=== PATIENT | male | born 1955 | race African-American/Black ===

== ENCOUNTER 2017-04-08 04:23 | Emergency (ER) | payer MEDICAID ==
[~2017-04-08] VITALS: Ht 170.2 cm; Wt 68.0 kg
--- NOTE | 2017-04-08 04:30 | NUR ---
TO BED 6 A 62 YO MALE PT LEONIDES#88 FROM HOME, PT C/O SOB X 1 DAY, GIVEN 5MG OF ALBUTEROL ASSOCIATE ARTISTIC DIRECTOR. VSS. NAD NOTED. NONDIAPHORETIC. COMFORT MEASURES RENDERED.
--- NOTE | 2017-04-08 05:03 | NUR ---
Patient discharged to home in stable condition. Written and verbal after care instructions given. Patient verbalizes understanding of instruction. Patient is ambulatory with steady gait. Nad on dc. vss. No further complaints.
[2017-04-08 05:04] VITALS: BP 154/97
== END 2017-04-08 05:04 | disposition home or self-care (01) ==
LOC: ER 04:26
DX: J98.01 Acute bronchospasm (principal); Z87.891 Personal history of nicotine dependence
CPT/HCPCS: 99283; A4606; Z7610

== ENCOUNTER 2018-12-02 13:44 | Emergency (ER) | payer MEDICAID ==
[~2018-12-02] VITALS: Ht 170.2 cm; Wt 68.0 kg
[2018-12-02 13:44] VITALS: BP 167/97
--- NOTE | 2018-12-02 13:44 | NUR ---
TO ER BED 15,VERBALIZED HE FEELS BETTER AFTER HHN GIVEN BY EMS.
--- NOTE | 2018-12-02 14:11 | NUR ---
ASKED IF HE IS HOMELESS, ANSWERED YES. OFFERED TO HAVE CELL OPERATION SUPERVISOR TO SEE HIM BUT SAID THAT HE DOESN'T NEED ANY [facility] IS HELPING HIM.
[2018-12-02] MEDS ORDERED: ALBUTEROL FS 2.5 MG/3 ML VIAL.NEB NEB ONE (14:30)
[2018-12-02] MEDS ORDERED: IPRATROPIUM NEB FS 0.5 MG/2.5 ML AMPUL.NEB NEB ONE (14:30)
[2018-12-02] MEDS ORDERED: ALBUTEROL FS 2.5 MG/3 ML VIAL.NEB ONE (14:32)
[2018-12-02] MEDS ORDERED: IPRATROPIUM NEB FS 0.5 MG/2.5 ML AMPUL.NEB ONE (14:32)
== END 2018-12-02 16:47 | disposition home or self-care (01) ==
LOC: ER 13:53
DX: R06.02 Shortness of breath (principal); R06.2 Wheezing; F17.200 Nicotine dependence, unspecified, uncomplicated; Z60.2 Problems related to living alone

== ENCOUNTER 2019-05-06 22:30 | Emergency (ER) | payer MEDICAID ==
[~2019-05-06] VITALS: Ht 182.9 cm; Wt 86.2 kg
--- NOTE | 2019-05-06 22:32 | NUR ---
BIBRA88. C/O SOB - ASTHMA EXACERBATION. PT OUT OF INHALER. ALBUTEROL 5ML VIA HHN GIVEN ENROUTE TO ER, pt awake, alert, vss, pending md snowden
[2019-05-06] MEDS ORDERED: ALBUTEROL FS 2.5 MG/3 ML VIAL.NEB ONE (22:46)
[2019-05-06] MEDS ORDERED: IPRATROPIUM NEB FS 0.5 MG/2.5 ML AMPUL.NEB ONE (22:46)
[2019-05-06] MEDS ORDERED: ALBUTEROL FS 2.5 MG/0.5 ML VIAL.NEB NEB ONE (23:00)
[2019-05-06] MEDS ORDERED: IPRATROPIUM NEB FS 0.5 MG/2.5 ML AMPUL.NEB NEB ONE (23:00)
[2019-05-06] MEDS ORDERED: DEXAMETHASONE SOLN 5 MG/5 ML UDC PO ONE (23:00)
[2019-05-06] MEDS ORDERED: DEXAMETHASONE SOLN 5 MG/5 ML UDC ONE (23:01)
--- NOTE | 2019-05-06 23:40 | NUR ---
Patient discharged to home in stable condition. Written and verbal after care instructions given. Patient verbalizes understanding of instruction.
[2019-05-06 23:41] VITALS: BP 143/87
== END 2019-05-06 23:41 | disposition home or self-care (01) ==
LOC: ER 22:31
DX: J45.909 Unspecified asthma, uncomplicated (principal); F17.200 Nicotine dependence, unspecified, uncomplicated; Z59.0 Homelessness; Z60.2 Problems related to living alone
CPT/HCPCS: 71045; 94640; 99283; J8540

== ENCOUNTER 2019-07-15 23:47 | Emergency (ER) | payer MEDICAID ==
[~2019-07-15] VITALS: Ht 180.3 cm; Wt 86.2 kg
[2019-07-15] MEDS ORDERED: predniSONE 20 MG TABLET ONE ×2 (23:53→23:55)
[2019-07-16] MEDS ORDERED: predniSONE 20 MG TABLET PO ONE
[2019-07-16] MEDS ORDERED: ALBUTEROL FS 2.5 MG/3 ML VIAL.NEB NEB ONE
[2019-07-16] MEDS ORDERED: ALBUTEROL SULFATE 8 GM HFA.AER.AD IH ONE
--- NOTE | 2019-07-16 00:02 | NUR ---
PT AAOX4. AMBULATYORY WITH STEADY GAIT. BIBRA [address] C/O SOB FOR TWO DAYS, HX ASTHMA. UPON ASSESSMENT WHEEZING HEARD. CALLED RT.
[2019-07-16] MEDS ORDERED: ALBUTEROL FS 2.5 MG/3 ML VIAL.NEB ONE (00:29)
--- NOTE | 2019-07-16 00:32 | NUR ---
RT AT BEDSIDE FOR BREATHING TREATMENT.
--- NOTE | 2019-07-16 01:20 | NUR ---
Patient discharged to home in stable condition. Written and verbal after care instructions given. Patient verbalizes understanding of instruction and RX. Pt signed homeless dischage. Pt ambulated with steady gait. RR even and unlabored.
[2019-07-16 01:25] VITALS: BP 132/79
== END 2019-07-16 01:25 | disposition home or self-care (01) ==
LOC: ER 23:51
DX: J45.901 Unspecified asthma with (acute) exacerbation (principal); Z59.0 Homelessness; Z60.2 Problems related to living alone
CPT/HCPCS: 94640; 99285; J7512 ×2

== ENCOUNTER 2019-08-15 22:45 | Emergency (ER) | payer MEDICAID ==
[~2019-08-15] VITALS: Ht 180.3 cm; Wt 86.2 kg
[2019-08-15] MEDS ORDERED: predniSONE 20 MG TABLET ONE (22:51)
--- NOTE | 2019-08-15 22:57 | NUR ---
MONISHA FROM STREET TO ER BED 6. AAOX4. SOB, BREATHING HEAVILY. AMBULATORY. CAME IN FOR SHORT OF BREATH. PT REPORT STHAT HE HAS BEEN SHORT OF BREATH FOR THE PAST COUPLE DAYS AND GETTING WORST AND RAN OUT OF HIS ALBUTEROL INHALER. NOTED BILAT LUNGS WHEEZING. SATTING 97% ON RA. WAS AT BEDSIDE FOR EVAL. ORDERS RECEIVEDNOTED AND CARRIED OUT
[2019-08-15] MEDS ORDERED: IPRATROPIUM NEB FS 0.5 MG/2.5 ML AMPUL.NEB NEB ONE (23:00)
[2019-08-15] MEDS ORDERED: ALBUTEROL FS 2.5 MG/3 ML VIAL.NEB NEB ONE (23:00)
[2019-08-15] MEDS ORDERED: predniSONE 20 MG TABLET PO ONE (23:00)
--- NOTE | 2019-08-15 23:07 | NUR ---
XRAY AT BEDSIDE
[2019-08-15] MEDS ORDERED: IPRATROPIUM NEB FS 0.5 MG/2.5 ML AMPUL.NEB ONE (23:29)
[2019-08-15] MEDS ORDERED: ALBUTEROL FS 2.5 MG/3 ML VIAL.NEB ONE (23:29)
--- NOTE | 2019-08-16 00:34 | NUR ---
Patient discharged to home in stable condition. Written and verbal after care instructions given. Patient verbalizes understanding of instruction.Pt ambulatory with a steady gait
[2019-08-16 00:35] VITALS: BP 144/80
== END 2019-08-16 00:35 | disposition home or self-care (01) ==
LOC: ER 22:46
DX: J45.909 Unspecified asthma, uncomplicated (principal); Z59.0 Homelessness; Z60.2 Problems related to living alone
CPT/HCPCS: 71045; 93005; 94640; 99285; J7512

== ENCOUNTER 2019-09-05 20:40 | Emergency (ER) | payer MEDICAID ==
[~2019-09-05] VITALS: Ht 180.3 cm; Wt 84.8 kg
[2019-09-05] MEDS ORDERED: IPRATROPIUM NEB FS 0.5 MG/2.5 ML AMPUL.NEB IH ONE (21:00)
[2019-09-05] MEDS ORDERED: ALBUTEROL FS 2.5 MG/3 ML VIAL.NEB IH ONE (21:00)
[2019-09-05] MEDS ORDERED: predniSONE 20 MG TABLET PO ONE (21:00)
--- NOTE | 2019-09-05 21:09 | NUR ---
PT PRESENTED TO THE ER WITH A C/O SOB. PT IS 100% ON RA, BUT HAS DIMINISHED BREATH SOUNDS ON THE LEFT. PT AMBULATED TO ER 6 WITH A STEADY GAIT.
--- NOTE | 2019-09-05 21:11 | NUR ---
PT WAS PLACED ON THE MONITOR AND CONTINUOUS PULSE OX.
--- NOTE | 2019-09-05 21:16 | NUR ---
PT REC'D MEDICATION ORDERED. RT TO GIVE A BREATHING TX.
--- NOTE | 2019-09-05 21:20 | NUR ---
BREATHING TX IN PROGRESS AT THE BEDSIDE.
[2019-09-05] MEDS ORDERED: ALBUTEROL FS 2.5 MG/3 ML VIAL.NEB ONE (21:26)
[2019-09-05] MEDS ORDERED: ALBUTEROL FS 2.5 MG/0.5 ML VIAL.NEB ONE (21:26)
[2019-09-05] MEDS ORDERED: ALBUTEROL FS 2.5 MG/3 ML VIAL.NEB NEB ONE (21:30)
[2019-09-05] MEDS ORDERED: IPRATROPIUM NEB FS 0.5 MG/2.5 ML AMPUL.NEB NEB ONE (21:30)
--- NOTE | 2019-09-05 22:32 | NUR ---
BREATHING TX FINISHED. Patient discharged to home in stable condition. Written and verbal after care instructions given. Patient verbalizes understanding of instruction AND RX. PT AMBULATED TO THE LOBBY WITH A STEADY GAIT. PT WILL CALL A TAXI TO TAKE HIM HOME.
[2019-09-05 22:58] VITALS: BP 127/96
== END 2019-09-05 22:58 | disposition home or self-care (01) ==
LOC: ER 20:42
DX: J45.909 Unspecified asthma, uncomplicated (principal); Z60.2 Problems related to living alone; Z59.0 Homelessness
CPT/HCPCS: 71045-TC

== ENCOUNTER 2019-11-18 18:21 | Emergency (ER) | payer MEDICAID ==
[~2019-11-18] VITALS: Ht 180.3 cm; Wt 82.6 kg
[2019-11-18 18:27] VITALS: BP 136/86
[2019-11-18] MEDS ORDERED: ALBUTEROL FS 2.5 MG/0.5 ML VIAL.NEB ONE (19:20)
--- NOTE | 2019-11-18 19:27 | NUR ---
RT AT BEDSIDE
[2019-11-18] MEDS ORDERED: ALBUTEROL FS 2.5 MG/0.5 ML VIAL.NEB NEB ONE (19:30)
[2019-11-18] MEDS ORDERED: ALBUTEROL SULFATE INH 18 GM HFA.AER.AD IH PRN (19:30)
--- NOTE | 2019-11-18 19:31 | NUR ---
PT REASSESSED. NOT IN RESPIRATORY DISTRESS. WILL CONTINUE TO MONITOR
--- NOTE | 2019-11-18 19:39 | NUR ---
RT rt called to bedside for breathing tx. pt states no sob/no resp distress. hx of asthma. lung sounds diminished throughout. post tx pt states breathing is much better. lung sounds diminished. spo2 100% pre and post tx.
--- NOTE | 2019-11-18 19:42 | NUR ---
Patient discharged to home in stable condition. Written and verbal after care instructions given. Patient verbalizes understanding of instruction.pt. ambulatory with a steady gait
== END 2019-11-18 19:42 | disposition home or self-care (01) ==
LOC: ER 18:28
DX: J45.909 Unspecified asthma, uncomplicated (principal); Z76.0 Encounter for issue of repeat prescription; Z59.0 Homelessness; Z60.2 Problems related to living alone

== ENCOUNTER 2020-02-24 12:02 | Inpatient (IN) | payer MEDICARE, OTHER ==
[~2020-02-24] VITALS: Ht 180.3 cm; Wt 86.2 kg
--- NOTE | 2020-02-24 12:02 | NUR ---
PT MONISHA FROM HOMELESS GROUP HOME C/O GEN WEAKNESS FOR 2 WEEKS, PT IS AAOX4, NOT IN RESPIRATORY DISTRESS, HOOKED TO MECHATRONICS TECHNICIAN, KEPT RESTED AND COMFORTABLE. WILL CONTINUE TO MONITOR.
--- NOTE | 2020-02-24 12:18 | NUR ---
SEEN AND EXAMINED BY
[2020-02-24] MEDS ORDERED: IV NS 0.9% 1,000 ML BAG IV ONE (12:30)
[2020-02-24] MEDS ORDERED: methylPREDNISolone SOD SUCC 125 MG/2ML VIAL IV ONE (12:30)
--- NOTE | 2020-02-24 12:40 | NUR ---
IV LINE ESTABLISHED BLOOD DRAWN AND SENT TO LAB.
[2020-02-24] MEDS ORDERED: methylPREDNISolone SOD SUCC 125 MG/2ML VIAL ONE (12:57)
[2020-02-24 13:03] LABS: HEMOGLOBIN 17.7 g/dL (13.5-17.5); MEAN CORPUSCULAR HGB CONC 33 g/dl (31.0-36.0); WHITE BLOOD COUNT (AUTO) 5.6 K/uL (4.3-11.0)
[2020-02-24 13:06] LABS: BASOPHILS % (AUTO) 0.8 % (0.0-2.0); EOSINOPHILS % (AUTO) 0.8 % (0.0-6.0); HEMATOCRIT 53 % (39-51); LYMPHOCYTES # (AUTO) 0.9 /CMM (0.8-4.8); LYMPHOCYTES % (AUTO) 16.2 % (20.0-44.0); MEAN CORPUSCULAR VOLUME 90 fL (80-96); MONOCYTES # (AUTO) 0.5 /CMM (0.1-1.30); MONOCYTES % (AUTO) 9.3 % (2.0-12.0); NEUTROPHILS # (AUTO) 4.1 /CMM (1.8-8.9); NEUTROPHILS % (AUTO) 72.9 % (43.0-81.0); PLATELET COUNT (AUTO) 260 /CMM (150-450); RED BLOOD CELL COUNT(AUTO) 5.88 MIL/uL (4.5-6.0)
[2020-02-24 13:15] LABS: ALANINE AMINOTRANSFERASE 23 U/L (12-78); ALBUMIN 3.3 g/dL (3.4-5.0); ALKALINE PHOSPHATASE 49 U/L (46-116); ASPARTATE AMINOTRANSFERASE 39 U/L (15-37); BILIRUBIN,DIRECT 0.3 mg/dL (0.0-0.2); BILIRUBIN,TOTAL 0.6 mg/dL (0.2-1.0); CALCIUM, SERUM 8.2 mg/dL (8.5-10.1); CARBON DIOXIDE 18 mmol/L (21-32); CHLORIDE 94 mmol/L (98-107); CREATININE 2.8 mg/dL (0.6-1.3); GLUCOSE 110 mg/dL (74-106); POTASSIUM 4.8 mmol/L (3.5-5.1); SODIUM SERUM 124 mmol/L (136-145); TOTAL PROTEIN, SERUM 8.1 g/dL (6.4-8.2)
[2020-02-24 13:16] LABS: UREA NITROGEN, BLOOD 84 mg/dL (7-18)
--- NOTE | 2020-02-24 13:35 | NUR ---
URINE SPECIMEN COLLECTED AND SENT TO LAB.
[2020-02-24 13:39] LABS: BILIRUBIN,URINE Negative (NEGATIVE); BLOOD, URINE Trace-lysed Ery/uL (NEGATIVE); COLOR,URINE YELLOW (YELLOW); LEUKOCYTE ESTERASE ,URINE Negative (NEGATIVE); NITRITE, URINE Negative (NEGATIVE); PROTEIN,URINE 100 mg/dl (NEGATIVE); UGLUCOSE Negative (NEGATIVE); UROBILINOGEN,URINE 0.2 EU/dL (0.2)
[2020-02-24 13:48] LABS: BACTERIA,URINE Few /HPF (None Seen); COARSE GRANULAR CASTS,URINE Few /LPF (None Seen); SQUAMOUS EPITHELIAL CELL,UR Few /HPF (None Seen); WBC,URINE 0-2 /HPF (0-3)
--- NOTE | 2020-02-24 13:50 | NUR ---
[facility] CALLED EMERGENCY MANAGEMENT CONSULTANT PAGED.
[2020-02-24] MEDS ORDERED: CEFTRIAXONE 1GM BAG (ER ONLY) 50 ML IV ONE ×2 (14:00→14:09)
[2020-02-24] MEDS ORDERED: AZITHROMYCIN 500 MG in IV D5W 250 ML IV ONE (14:00)
--- NOTE | 2020-02-24 14:23 | NUR ---
[facility] CALLED. REPAGING DR DOCKERY. AWAITING CALL BACK.
--- NOTE | 2020-02-24 14:30 | NUR ---
ER PHLEB AT BEDSIDE FOR BLOOD CULTURE.
--- NOTE | 2020-02-24 14:49 | NUR ---
COVID TEST: POSITIVE
[2020-02-24] MEDS ORDERED: ONDANSETRON HCL/PF 4 MG/2 ML VIAL IVP PRN (15:00)
[2020-02-24] MEDS ORDERED: ALBUTEROL FS 2.5 MG/0.5 ML VIAL.NEB NEB PRN (15:00)
[2020-02-24] MEDS ORDERED: MAG HYDROX/AL HYDROX/SIMETH 30 ML UDC PO PRN (15:00)
[2020-02-24] MEDS ORDERED: IPRATROPIUM NEB FS 0.5 MG/2.5 ML AMPUL.NEB NEB PRN (15:00)
[2020-02-24] MEDS ORDERED: HYDROCODONE/APAP 5/325MG TABLET PO PRN (15:00)
[2020-02-24] MEDS ORDERED: MAGNESIUM HYDROXIDE 30 ML UDC PO PRN (15:00)
[2020-02-24] MEDS ORDERED: ZOLPIDEM TARTRATE 5 MG TABLET PO PRN (15:00)
[2020-02-24] MEDS ORDERED: Z GUARD REMEDY 2 OZ OINT TP PRN (15:00)
--- NOTE | 2020-02-24 15:53 | NUR ---
ROOM GIVEN 209
--- NOTE | 2020-02-24 15:55 | NUR ---
REPORT GIVEN TO MOHAMUD FARR FOR TORO.
--- NOTE | 2020-02-24 16:10 | NUR ---
JIGSAWYERPLAYER MANAGER NOTES RECEIVED PT FROM ER WITH PRIMARY DIAGNOSIS OF COMMUNITY-ACQUIRED PNA, ACUTE KIDNEY FAILURE. RESPIRATION EVEN AND NON LABORED WITH NO ACUTE RESPIRATORY DISTRESS, TOLERATING RA AT 98%. ABD SOFT AND NON DISTENDED WITH ACTIVE BOWEL SOUNDS, LBM 11. PT DENIES PAIN AND DISCOMFORT. SKIN WARM TO TOUCH AND DRY, INTACT. TELE MONITOR SHOWS SR 70. IV SITE AT LEFT HAND # 20 RUNNING NS @ 75 ML/HR. BED IN LOW LOCKED POSITION, SRX2 UP FOR SAFETY, CALL LIGHT WITHIN REACH. WILL CONTINUE TO MONITOR CARE.
[2020-02-24] MEDS: IV NS 0.9% 1,000 ML IV PRN (16:45)
[2020-02-24 18:25] VITALS: BP 129/88
--- NOTE | 2020-02-24 18:45 | NUR ---
SENIOR INFORMATICA DEVELOPER CLOSING NOTES PT A/OX4, ABLE TO MAKE NEEDS KNOWN. NOT IN ACUTE RESPIRATORY DISTRESS, TOLERATING RA WITH NO SOB. PT DENIES PAIN AND DISCOMFORT. TOLERATED DINNER AT 75% WITH REGULAR DIET. SKIN WARM TO TOUCH AND DRY. RUNNING NS AT 75 ML/HR AT LEFT HAND @ 20, NO S/SX ON INFILTRATION. TELE MONITOR SHOWS SINUS RHYTHM 70. ALL CONCERNS ATTENDED. ENDORSED CARE TO NEXT SHIFT.
[2020-02-24 19:04] LABS: CREATININE, URINE 90.2 MG/DL (30.0-125.0); URINE TOTAL PROTEIN 54.4 mg/dL (0-11.9)
--- NOTE | 2020-02-24 19:10 | NUR ---
RESEARCH PHLEBOTOMIST NOTES RECEIVED PT IN BED AWAKE AND ABLE TO MAKE NEEDS KNOWN. PT A/OX4. RESPIRATIONS EVEN AND UNLABORED WITH NO S/S OF ACUTE DISTRESS OR SO NOTED. PT DENIES PAIN AND DISCOMFORT. PT INFUSING NS AT 75 ML/HR AT LEFT HAND @ 20. SAFETY MEASURES IN PLACE WITH BED IN LOWEST LOCKED POSITION WITH SIDE RAILS UP X2. CALL LIGHT WITHIN REACH. WILL CONTINUE TO MONITOR.
[2020-02-24 20:00] VITALS: BP 127/71
[2020-02-24 20:31] VITALS: BP 125/71
[2020-02-24 21:06] LABS: ALBUMIN 2.8 g/dL (3.4-5.0); BILIRUBIN,TOTAL 0.4 mg/dL (0.2-1.0); CALCIUM, SERUM 7.6 mg/dL (8.5-10.1); CREATININE 2.3 mg/dL (0.6-1.3); POTASSIUM 4.8 mmol/L (3.5-5.1); TOTAL PROTEIN, SERUM 7.2 g/dL (6.4-8.2)
[2020-02-24] MEDS: methylPREDNISolone SOD SUCC 125 MG/2ML VIAL IV SCH (21:22)
[2020-02-25] VITALS (8 sets, daily range): BP systolic 127–142; BP diastolic 82–91
[2020-02-25] MEDS: methylPREDNISolone SOD SUCC 125 MG/2ML VIAL IV SCH ×2 (05:51→12:08)
[2020-02-25] MEDS: IV NS 0.9% 1,000 ML IV PRN (06:33)
[2020-02-25 06:35] LABS: BASOPHILS % (AUTO) 0.9 % (0.0-2.0); EOSINOPHILS % (AUTO) 0.1 % (0.0-6.0); HEMATOCRIT 49 % (39-51); HEMOGLOBIN 16.4 g/dL (13.5-17.5); LYMPHOCYTES # (AUTO) 0.6 /CMM (0.8-4.8); LYMPHOCYTES % (AUTO) 17.4 % (20.0-44.0); MEAN CORPUSCULAR HGB CONC 34 g/dl (31.0-36.0); MEAN CORPUSCULAR VOLUME 88 fL (80-96); MONOCYTES # (AUTO) 0.3 /CMM (0.1-1.30); MONOCYTES % (AUTO) 7.3 % (2.0-12.0); NEUTROPHILS # (AUTO) 2.7 /CMM (1.8-8.9); NEUTROPHILS % (AUTO) 74.3 % (43.0-81.0); PLATELET COUNT (AUTO) 277 /CMM (150-450); RED BLOOD CELL COUNT(AUTO) 5.52 MIL/uL (4.5-6.0); WHITE BLOOD COUNT (AUTO) 3.6 K/uL (4.3-11.0)
--- NOTE | 2020-02-25 06:36 | NUR ---
MAINTENANCE CARPENTER NOTES PT IN BED AWAKE AND ABLE TO MAKE NEEDS KNOWN. PT A/OX4. RESPIRATIONS EVEN AND UNLABORED WITH NO S/S OF ACUTE DISTRESS OR SO NOTED THROUGHOUT SHIFT. PT DENIES PAIN AND DISCOMFORT. PT INFUSING NS AT 75 ML/HR AT LEFT HAND G20. SAFETY MEASURES IN PLACE WITH BED IN LOWEST LOCKED POSITION WITH SIDE RAILS UP X2. CALL LIGHT WITHIN REACH. WILL ENDORSE TO ONCOMING NURSE FOR TORO.
[2020-02-25 06:56] LABS: CALCIUM, SERUM 8.1 mg/dL (8.5-10.1); MAGNESIUM 3.4 mg/dL (1.8-2.4); PHOSPHORUS 2.2 mg/dL (2.5-4.9); POTASSIUM 5.1 mmol/L (3.5-5.1)
[2020-02-25 07:11] LABS: THYROID STIMULATING HORMONE 0.276 uIU/mL (0.358-3.74)
[2020-02-25] MEDS ORDERED: K PHOS NEUTRAL 250 MG TABLET PO ONE (11:00)
[2020-02-25] MEDS: AZITHROMYCIN 500 MG in IV D5W 250 ML IV SCH (13:24)
[2020-02-25 13:43] LABS: C-REACTIVE PROTEIN 9.6 mg/dL (0.0-0.9)
[2020-02-25] MEDS: CEFTRIAXONE 1 G in IV D5W 50 ML IV SCH (14:47)
--- NOTE | 2020-02-25 17:22 | NUR ---
rn notes patient remains on room air, no sob noted, a/o x3. l hand with 20 gauge present. NS 75 ml per hour. sodium trending up at this time. Neri virus REYNA test swabbed and sent to lab. Per lab, it should be about 3 days to receive a result back. Bed at the lowest setting, call light within reach, side rails up x2.
--- NOTE | 2020-02-25 19:30 | NUR ---
TELE/RN OPENING NOTES RECEIVED PATIENT IN BED RESTING. PATIENT IS ALERT AND ORIENTED X 3. NO SIGNS OF SOB OR RESPIRATORY DISTRESS NOTED. BREATHING IS EVEN AND UNLABORED. TELE READING NSR. PATIENT IN NO SIGNS OF DISTRESS. PATIENT HAS IV ACCESS ON LEFT HAND #20G INTACT. SAFETY MEASURES ARE IN PLACE, BED IS LOCKED AND PLACED IN THE LOW POSITION, SIDE RAILS UP X 2. CALL LIGHT IS WITHIN REACH. WILL CONTINUE TO MONITOR THROUGH OUT SHIFT.
[2020-02-26] VITALS: BP 157/94
--- NOTE | 2020-02-26 06:40 | NUR ---
TELE/RN CLOSING NOTES PATIENT IN BED SLEEPING EARLY TO WAKE. PATIENT IS ALERT AND ORIENTED X 3. NO SIGNS OF SOB OR RESPIRATORY DISTRESS NOTED. BREATHING IS EVEN AND UNLABORED. TELE READING NSR. PATIENT IN NO SIGNS OF DISTRESS. TELE READING SR 63. PATIENT HAS IV ACCESS ON LEFT HAND #20G INTACT. ALL PATIENT NEEDS HAVE BEEN MET DURING SHIFT. SAFETY MEASURES ARE IN PLACE, BED IS LOCKED AND PLACED IN THE LOW POSITION, SIDE RAILS UP X 2. CALL LIGHT IS WITHIN REACH. WILL ENDORSE CARE TO DAY SHIFT.
[2020-02-26 06:51] LABS: CALCIUM, SERUM 8.1 mg/dL (8.5-10.1); CREATININE 1.9 mg/dL (0.6-1.3); MAGNESIUM 3.3 mg/dL (1.8-2.4); PHOSPHORUS 2.8 mg/dL (2.5-4.9); POTASSIUM 4.8 mmol/L (3.5-5.1)
[2020-02-26 07:09] LABS: URIC ACID 7.1 mg/dL (2.6-7.2)
[2020-02-26 08:00] VITALS: BP 135/78
[2020-02-26 08:54] LABS: BASOPHILS % (AUTO) 0.3 % (0.0-2.0); HEMATOCRIT 46 % (39-51); HEMOGLOBIN 15.2 g/dL (13.5-17.5); LYMPHOCYTES # (AUTO) 0.7 /CMM (0.8-4.8); LYMPHOCYTES % (AUTO) 5.2 % (20.0-44.0); MEAN CORPUSCULAR HGB CONC 33 g/dl (31.0-36.0); MEAN CORPUSCULAR VOLUME 90 fL (80-96); MONOCYTES # (AUTO) 0.4 /CMM (0.1-1.30); MONOCYTES % (AUTO) 2.9 % (2.0-12.0); NEUTROPHILS # (AUTO) 12.8 /CMM (1.8-8.9); NEUTROPHILS % (AUTO) 91.6 % (43.0-81.0); PLATELET COUNT (AUTO) 376 /CMM (150-450); RED BLOOD CELL COUNT(AUTO) 5.12 MIL/uL (4.5-6.0); WHITE BLOOD COUNT (AUTO) 13.9 K/uL (4.3-11.0)
[2020-02-26 12:00] VITALS: BP 143/81
--- NOTE | 2020-02-26 12:12 | NUR ---
Afterschool Babysitter consult requested by Dr. Tutu Singh as patient is homeless. Due to COVID-19 isolation, this SW conducted this assessment over the phone. Patient is a 65 year-old Male. Patient is alert and oriented x4. Patient was receptive to speaking with this SW. Patient did inform this SW that he was feeling tired and patient stated that he may cut this assessment early. This SW offered to speak with the patient at a later time but patient asked this SW to conduct community mental health social worker assessment. SW acknowledged patients request and continued with this assessment. Patient reports that he has been living at [facility] [employer]. Patient reported that he has been there for months and reported to this SW that he has been connected with [facility] to assist in more permanent housing. Patient informed this SW that he was given approval to move into a more permanent housing and per patient "I need to get better to move in." SW asked the patient if he could provide the address and contact of the field nurse case manager he has been working with at [facility], patient reported he does not have this information. Patient however provided consent to contact [facility] regarding the status of his permanent housing and provide the address as patient would like to be discharged to his permanent housing. Patient asked this SW to end the assessment at this time, SW thanked the patient for providing this information. Plan: SW will follow up with [facility] as requested by the patient.
--- NOTE | 2020-02-26 12:26 | NUR ---
This SW contacted [facility] . No transportation services representative was available at this time. SW to contact [facility] again at the request of the patient.
[2020-02-26] MEDS: AZITHROMYCIN 500 MG in IV D5W 250 ML IV SCH (13:05)
[2020-02-26 13:14] LABS: C-REACTIVE PROTEIN 4.3 mg/dL (0.0-0.9)
[2020-02-26] MEDS: IV NS 0.9% 1,000 ML IV PRN (13:25)
[2020-02-26] MEDS: CEFTRIAXONE 1 G in IV D5W 50 ML IV SCH (15:08)
[2020-02-26 16:00] VITALS: BP 148/85
--- NOTE | 2020-02-26 18:31 | NUR ---
PT A/OX4. NOT IN ACUTE RESPIRATORY DISTRESS, TOLERATING RA WITH NO SOB. HE DENIES PAIN AND DISCOMFORT. ABLE TO AMBULATE . RUNNING NS AT 75 ML/HR LEFT HAND @ 20, NO S/SX ON INFILTRATION. TELE MONITOR SHOWS SINUS RHYTHM 70. ALL NEEDS ATTENDED.SAFETY PRECAUTIONS OBSERVED.CALL LIGHT WITHIN REACH.WILL ENDORSE TO NEXT SHIFT FOR TORO .
--- NOTE | 2020-02-26 19:00 | NUR ---
TELE/RN OPENING NOTES: RECEIVED PT A/OX3. VERBALLY RESPONSIVE AND ABLE TO MAKE NEEDS KNOWN. NO SOB NOTED. NO S/S OF DISTRESS. ON ROOM AIR, SATURATING WELL. NO C/O PAIN AT THIS TIME. IV ON THE LEFT HAND #20G RUNNING NS @75MLS/HR. SAFETY MEASURES IN PLACE. BED IN LOW, LOCKED POSITION WITH SR UP X2. CALL LIGHT WITHIN REACH. WILL CONTINUE TO MONITOR.
[2020-02-26 20:00] VITALS: BP 128/89
[2020-02-27] VITALS: BP 136/72
[2020-02-27] MEDS: ACETAMINOPHEN 325 MG TABLET PO PRN ×2 (01:01→18:38)
--- NOTE | 2020-02-27 01:01 | NUR ---
TELE/RN NOTES: PT TEMP 102.6. APPLIED COOLING MEASURES AND ADMINISTERED TYLENOL 650MG PO. TOLERATED WELL. WILL CONTINUE TO MONITOR.
[2020-02-27 04:00] VITALS: BP 130/77
[2020-02-27] MEDS: IV NS 0.9% 1,000 ML IV PRN ×2 (05:10→22:10)
--- NOTE | 2020-02-27 05:19 | NUR ---
TELE/RN NOTES: COOLING MEASURES APPLIED. ICE BAG PLACED ON THE ARMPITS.
--- NOTE | 2020-02-27 06:45 | NUR ---
TELE/RN CLOSING NOTES: PT REMAINS A/OX3. SLEPT WELL THROUGH THE NIGHT. NO SOB NOTED. NO S/S OF DISTRESS. ON ROOM AIR, SATURATING WELL. NO C/O PAIN AT THIS TIME. TELE READING OF SR. IV ON THE LEFT HAND #20G RUNNING NS @75MLS/HR. ALL DUE MEDS GIVEN ORDERED. ALL NURSING NEEDS MET AND RENDERED. ISOLATION MAINTAINED. SAFETY MEASURES KEPT IN PLACE. BED IN LOW, LOCKED POSITION WITH SR UP X2. CALL LIGHT WITHIN REACH. WILL ENDORSE TO DAY SHIFT FOR TORO.
[2020-02-27 07:00] LABS: BASOPHILS % (AUTO) 0.3 % (0.0-2.0); EOSINOPHILS % (AUTO) 0.2 % (0.0-6.0); HEMATOCRIT 43 % (39-51); HEMOGLOBIN 14.5 g/dL (13.5-17.5); LYMPHOCYTES # (AUTO) 1.1 /CMM (0.8-4.8); LYMPHOCYTES % (AUTO) 16.5 % (20.0-44.0); MEAN CORPUSCULAR HGB CONC 34 g/dl (31.0-36.0); MEAN CORPUSCULAR VOLUME 88 fL (80-96); MONOCYTES # (AUTO) 0.5 /CMM (0.1-1.30); MONOCYTES % (AUTO) 7.7 % (2.0-12.0); NEUTROPHILS # (AUTO) 5.2 /CMM (1.8-8.9); NEUTROPHILS % (AUTO) 75.3 % (43.0-81.0); PLATELET COUNT (AUTO) 373 /CMM (150-450); RED BLOOD CELL COUNT(AUTO) 4.89 MIL/uL (4.5-6.0); WHITE BLOOD COUNT (AUTO) 6.9 K/uL (4.3-11.0)
[2020-02-27 07:12] LABS: CALCIUM, SERUM 7.4 mg/dL (8.5-10.1); CREATININE 1.5 mg/dL (0.6-1.3); MAGNESIUM 2.3 mg/dL (1.8-2.4); PHOSPHORUS 1.8 mg/dL (2.5-4.9); POTASSIUM 4.8 mmol/L (3.5-5.1)
--- NOTE | 2020-02-27 07:43 | NUR ---
RN Opening Note Received patient in bed, AO x 3-4, able to responds all stimuli, does no appears pain or discomfort. Respiratory even and unlabored on room air, no distress or SOB observed. Skin is warm to touch keep clean/dry, intact IV site on left hand g20. Kept locked bed with elevated HOB for ensure airway and aspiration precaution and lowest position for safety. Call light within reach, will continue to monitor.
[2020-02-27 08:00] VITALS: BP 152/94
[2020-02-27] MEDS ORDERED: K PHOS NEUTRAL 250 MG TABLET PO ONE (11:00)
--- NOTE | 2020-02-27 12:56 | NUR ---
Received order d/c nebulizer and start MDI accepted ok to start use Combient. Noted and carry out.
[2020-02-27] MEDS ORDERED: IPRATROPIUM/ALBUTEROL INHALER IH PRN (13:00)
[2020-02-27] MEDS: AZITHROMYCIN 500 MG in IV D5W 250 ML IV SCH (14:13)
[2020-02-27] MEDS: CEFTRIAXONE 1 G in IV D5W 50 ML IV SCH (15:21)
--- NOTE | 2020-02-27 18:29 | NUR ---
RN Closing note Patient in bed resting. Pt does no appears discomfort, skin is warm to touch keep clean/dry. Respiratory even and unlabored on room air O2sat 96%, no sob or distress observed. Kept locked bed and elevated HOB for ensure airway and aspiration precaution, and lowest position for safety, call light within reach, will endorse shift manager.
[2020-02-27] MEDS: DEXAMETHASONE 4 MG TABLET PO SCH (19:36)
--- NOTE | 2020-02-27 20:11 | NUR ---
MENS LOCKER ROOM ATTENDANT OPEN NOTES PT IS LAYING IN BED. A/O X3-4. ON RA, NO SOB/ ACUTE RESPIRATORY DISTRESS NOTED. TELE MONITOR READING SR WITH PAC, 69. IV IN L FOREARM #18G IS PATENT AND INTACT RUNNING NS @ 75MLS/HR. PT DENIES ANY PAIN AT THE MOMENT. BED IS IN LOWEST LOCKED POSITION WITH SIDE RAILS UP X3, SEMI FOWLERS. CALL LIGHT IS WITHIN REACH. WILL CONTINUE TO MONITOR.
[2020-02-27 20:14] VITALS: BP 108/71
[2020-02-28 00:30] VITALS: BP 128/89
[2020-02-28 01:23] VITALS: BP 128/89
[2020-02-28 05:21] VITALS: BP 145/93
--- NOTE | 2020-02-28 06:18 | NUR ---
REMELT FURNACE EXPEDITER CLOSE NOTES PATIENT IS LAYING IN BED. A/O X3-4. STABLE ON RA, NO SOB/ ACUTE RESPIRATORY DISTRESS NOTED. TELE MONITOR READING SR WITH PAC, 60. IV IN L FOREARM #18G IS PATENT AND INTACT RUNNING NS @ 75MLS/HR. PT DENIES ANY PAIN AT THE MOMENT. PT IS ABLE TO AMBULATE. BED IS IN LOWEST LOCKED POSITION WITH SIDE RAILS UP X2, SEMI FOWLERS. CALL LIGHT IS WITHIN REACH. WILL ENDORSE TO AM NURSE.
[2020-02-28 07:25] LABS: CALCIUM, SERUM 7.6 mg/dL (8.5-10.1); CREATININE 1.3 mg/dL (0.6-1.3); POTASSIUM 4.6 mmol/L (3.5-5.1)
--- NOTE | 2020-02-28 07:30 | NUR ---
TELE/RN OPENING NOTE Received patient in bed, A&O x 4. Denies any pain/discomfort at this time. Breathing even and non-labored on RA, no SOB noted. No cardiac distress noted, on tele monitor reading SR with PACs 60. IV access noted on L FA #18g, patent and intact, and running NS @ 75 ml/hr. Sensation from all peripheral extremities intact. Bed locked to its lowest position, side rails x 2 up, call light in hand. Will continue with current medical management.
[2020-02-28 08:00] VITALS: BP 151/92
[2020-02-28] MEDS: DEXAMETHASONE 4 MG TABLET PO SCH (08:27)
[2020-02-28] MEDS ORDERED: NEUTRA PHOS 1 POWD.PACKET PO ONE (10:30)
[2020-02-28] MEDS ORDERED: INFLUENZA VACCINE 2020-21 0.5 ML DISP.SYRIN IM ONE (12:00)
[2020-02-28] MEDS ORDERED: PNEUMOCOCCAL 23-VAL P-SAC VAC 0.5 ML VIAL SQ ONE (12:00)
--- NOTE | 2020-02-28 12:10 | NUR ---
TELE/RN NOTES Patient agreed to have flu and pneumococcal vaccine. Administered influenza vaccine on the right arm (LOT# [id number], EXP 10/09/20) and pneumococcal vaccine on the left arm (LOT# [id number], EXP 01/12/21).
[2020-02-28] MEDS ORDERED: AZITHROMYCIN 250 MG TABLET PO SCH (14:00)
[2020-02-28] MEDS: CEFTRIAXONE 1 G in IV D5W 50 ML IV SCH (14:55)
[2020-02-28 16:00] VITALS: BP 138/78
--- NOTE | 2020-02-28 19:22 | NUR ---
TELE/CNA INSTRUCTOR NOTE Patient picked up by ambulance @1915. All needs are met and attended to. No complaints of pain/discomfort throughout the shift. Breathing even and non-labored on RA, no respiratory or cardiac distress noted. Removed tele leads, skin is intact, no new skin impairments noted. IV access removed on L FA #18 with catheter intact. No s/s of bleeding, infiltration, or infection noted. Sensation from all peripheral extremities remain intact. Belongings and hospital documents in hand. Explained to patient and Karey, nursing quality assurance supervisor body from [facility], about discharge instructions and plan of care, answered all questions to their satisfaction. Patient left facility safely with 2 hose seamer.
== END 2020-02-28 19:25 | DRG 177 ==
LOC: ER 12:09 → TELE2 15:57
DX: U07.1 COVID-19 (principal); J12.89 Other viral pneumonia; N17.0 Acute kidney failure with tubular necrosis; J18.9 Pneumonia, unspecified organism; J44.0 Chronic obstructive pulmonary disease with (acute) lower respiratory infection; E27.40 Unspecified adrenocortical insufficiency; E86.1 Hypovolemia; F17.210 Nicotine dependence, cigarettes, uncomplicated; Z59.0 Homelessness; N18.9 Chronic kidney disease, unspecified
CPT/HCPCS: 36415; 71045-TC; 76770-TC; 80048-TC; 80053-TC; 80061-TC; 80076-TC; 81001; 82533; 82550-TC; 82570-TC; 82728-TC; 83615-TC; 83735-TC; 83880; 83935-TC; 83970; 84100-TC; 84155-TC; 84300-TC; 84443-TC; 84484-TC; 84550-TC; 85025-TC; 85378-TC; 86140-TC; 87040-TC; 87081-TC; 87086-TC; 90732; 93308-TC; 97112-TC; 97116-TC; 97530-TC; C9803; G0378; J0456; J0696; J2930; J7030; J7060; J8540; Q2036; U0003